=== PATIENT | female | born 1990 | race Caucasian/White ===

== ENCOUNTER 2019-10-01 11:04 | Inpatient (IN) | payer MEDICAID ==
[~2019-10-01] VITALS: Ht 157.5 cm; Wt 55.5 kg
[2019-10-01] MEDS ORDERED: PREN1TAB60 PO (11:58)
[2019-10-01] MEDS ORDERED: MAGNESIUM SULF. PMX 20GM/500ML 500 ML IV SCH (12:00)
[2019-10-01] MEDS ORDERED: LACTATED RINGERS 1,000 ML IV PRN (12:00)
[2019-10-01 12:20] VITALS: BP 100/55
[2019-10-01 12:31] LABS: MICROSCOPIC NOT IND
[2019-10-01 12:42] LABS: MEAN CORPUSCULAR HEMOGLOBIN 30.8 pg (27.0-34.8); MEAN CORPUSCULAR HGB CONC 33.8 g/dL (32.4-35.8); MEAN PLATELET VOLUME 9.6 fL (7.4-10.4); PLATELET COUNT 116 x10^3/uL (130-400); RED BLOOD COUNT 3.71 x10^6/uL (3.82-5.3); RED CELL DISTRIBUTION WIDTH 12.4 % (9.6-15.2)
[2019-10-01 12:51] LABS: ALANINE AMINOTRANSFERASE 18 U/L (12-78); ALBUMIN 2.6 g/dL (3.4-5.0); ANION GAP 9 mmol/L (5-15); CALCIUM 6.9 mg/dL (8.5-10.1); CHLORIDE 105 mmol/L (98-107); CREATININE 0.46 mg/dL (0.55-1.02)
[2019-10-01 12:54] LABS: ALKALINE PHOSPHATASE 98 U/L (45-117); BILIRUBIN,TOTAL 0.2 mg/dL (0.2-1.0); TOTAL PROTEIN 6.5 g/dL (6.4-8.2)
[2019-10-01 12:58] LABS: BASOPHILS # (AUTO) 0.02 x10^3/uL (0-0.1); BASOPHILS % (AUTO) 0 % (0-1); EOSINOPHILS % (AUTO) 0 % (1-7); LYMPHOCYTES # (AUTO) 0.69 x10^3/uL (1-3.4); LYMPHOCYTES % (AUTO) 4 % (22-44); MD SCAN; MONOCYTES # (AUTO) 0.07 x10^3/uL (0.2-0.8); MONOCYTES % (AUTO) 0 % (2-9); NEUTROPHILS # (AUTO) 18.65 x10^3/uL (1.8-6.8); NEUTROPHILS % (AUTO) 96 % (42-75)
[2019-10-01] MEDS ORDERED: SODIUM CITRATE/CITRIC ACID 30 ML UDC ONE (13:21)
[2019-10-01] MEDS ORDERED: FENTANYL PF 100 MCG/2ML ONE (13:21)
[2019-10-01] MEDS ORDERED: METOCLOPRAMIDE 5 MG/ML, 2ML ONE (13:21)
[2019-10-01] MEDS ORDERED: CEFAZOLIN 1,000 MG ONE ×2 (13:22)
[2019-10-01] MEDS ORDERED: OXYTOCIN 10 UNITS/ML, 1ML ONE ×4 (13:26)
[2019-10-01] MEDS ORDERED: KETOROLAC 30 MG/1 ML ONE (13:26)
[2019-10-01] MEDS ORDERED: AZITHROMYCIN 500 MG in SODIUM CHLORIDE 0.9% 250 ML IV ONE (13:30)
[2019-10-01] MEDS ORDERED: LACTATED RINGERS 1,000 ML IVBOLUS ONE (13:30)
[2019-10-01] MEDS ORDERED: SODIUM CITRATE/CITRIC ACID 30 ML UDC PO ONE (13:30)
[2019-10-01] MEDS ORDERED: METOCLOPRAMIDE 5 MG/ML, 2ML IV ONE (13:30)
[2019-10-01] MEDS ORDERED: PHENYLEPHRINE 10 MG/ML ONE (14:08)
[2019-10-01] MEDS ORDERED: EPHEDRINE 50 MG/ML, 1ML ONE (14:08)
[2019-10-01] MEDS ORDERED: NEWBORN KIT ONE (14:17)
[2019-10-01] MEDS ORDERED: ONDANSETRON 2MG/ML, 2ML IVPush PRN (15:00)
[2019-10-01] MEDS ORDERED: EPHEDRINE 50 MG/ML, 1ML IM PRN (15:00)
[2019-10-01] MEDS ORDERED: FENTANYL PF 100 MCG/2ML IV PRN (15:00)
[2019-10-01] MEDS ORDERED: EPHEDRINE 50 MG/ML, 1ML IVPush PRN (15:00)
[2019-10-01] MEDS ORDERED: OXYcodone 5 MG/5 ML ORAL.SOL UDC PO PRN (15:00)
[2019-10-01] MEDS ORDERED: morphine SULFATE 10 MG/ML, 1ML IVPush PRN (15:00)
[2019-10-01] MEDS ORDERED: LABETALOL 5MG/ML, 20ML IV PRN (15:00)
[2019-10-01] MEDS ORDERED: DIPHENHYDRAMINE 50 MG/ML, 1ML IVPush PRN (15:00)
[2019-10-01] MEDS: LACTATED RINGERS 1,000 ML IV SCH ×3 (15:02→23:02)
[2019-10-01] MEDS ORDERED: ONDANSETRON 2MG/ML, 2ML IV PRN (15:30)
[2019-10-01] MEDS ORDERED: SIMETHICONE 80 MG CHEW TAB PO PRN (15:30)
[2019-10-01] MEDS ORDERED: METHYLERGONOVINE 0.2 MG/ML IM PRN (15:30)
[2019-10-01] MEDS ORDERED: ACETAMINOPHEN 325 MG TABLET PO PRN (15:30)
[2019-10-01] MEDS ORDERED: OXYTOCIN 30U/ 0.9% NaCL 500ML 500 ML ONE (16:11)
[2019-10-01] MEDS: OXYTOCIN 30U/ 0.9% NaCL 500ML 500 ML IV SCH (16:13)
[2019-10-01] MEDS ORDERED: OXYcodone 5 MG/5 ML ORAL.SOL UDC ONE (16:41)
[2019-10-01 17:22] VITALS: BP 99/47
[2019-10-01 19:56] VITALS: BP 101/47
[2019-10-01] MEDS: OXYcodone IR 5MG TABLET PO PRN (20:44)
[2019-10-01] MEDS: IBUPROFEN 600 MG TABLET PO PRN (20:44)
[2019-10-01] MEDS: DOCUSATE 100 MG CAPSULE PO PRN (20:44)
[2019-10-01 21:25] LABS: MEAN CORPUSCULAR HEMOGLOBIN 30.4 pg (27.0-34.8); MEAN CORPUSCULAR HGB CONC 33.2 g/dL (32.4-35.8); MEAN CORPUSCULAR VOLUME 91.6 fL (80-100); PLATELET COUNT 102 x10^3/uL (130-400); RED CELL DISTRIBUTION WIDTH 12.9 % (9.6-15.2)
[2019-10-01 23:11] LABS: MD YES
[2019-10-01 23:13] LABS: <PLATELET ESTIMATE> DECREASED; <PLT MORPHOLOGY> NORMAL PLT MORPH; <RBC MORPHOLOGY> NORMAL; MONOS% (MANUAL) 2 % (2-9); SEGS% (MANUAL) 98 % (42-75)
[2019-10-02 00:13] VITALS: BP 105/56
[2019-10-02] MEDS: LACTATED RINGERS 1,000 ML IV SCH ×6 (01:02→23:02)
[2019-10-02] MEDS: OXYTOCIN 30U/ 0.9% NaCL 500ML 500 ML IV SCH ×3 (01:02→21:02)
[2019-10-02] MEDS: OXYcodone IR 5MG TABLET PO PRN ×4 (02:23→19:23)
[2019-10-02] MEDS: IBUPROFEN 600 MG TABLET PO PRN ×3 (02:23→19:23)
[2019-10-02 04:06] VITALS: BP 98/48
[2019-10-02 07:10] VITALS: BP 95/59
[2019-10-02] MEDS: PRENATAL VIT/IRON/FA 1 EACH TABLET PO SCH (09:10)
[2019-10-02] MEDS: DOCUSATE 100 MG CAPSULE PO PRN ×2 (09:10→19:23)
[2019-10-02 12:10] VITALS: BP 93/57
[2019-10-02 16:00] VITALS: BP 101/65
[2019-10-02 19:30] VITALS: BP 96/56
[2019-10-03] MEDS: OXYcodone IR 5MG TABLET PO PRN ×2 (04:27→08:40)
[2019-10-03] MEDS: IBUPROFEN 600 MG TABLET PO PRN ×3 (04:27→17:46)
[2019-10-03] MEDS: OXYTOCIN 30U/ 0.9% NaCL 500ML 500 ML IV SCH ×2 (07:02→18:17)
[2019-10-03] MEDS: LACTATED RINGERS 1,000 ML IV SCH ×5 (07:02→23:02)
[2019-10-03] MEDS: DOCUSATE 100 MG CAPSULE PO PRN (08:40)
[2019-10-03] MEDS: PRENATAL VIT/IRON/FA 1 EACH TABLET PO SCH (08:40)
[2019-10-03] MEDS: OXYcodone/APAP 5/325MG TABLET PO PRN (17:47)
[2019-10-03 21:00] VITALS: BP 94/56
[2019-10-04] MEDS: IBUPROFEN 600 MG TABLET PO PRN ×2 (00:55→11:10)
[2019-10-04] MEDS: OXYTOCIN 30U/ 0.9% NaCL 500ML 500 ML IV SCH (03:02)
[2019-10-04] MEDS: LACTATED RINGERS 1,000 ML IV SCH ×2 (03:02→07:02)
[2019-10-04 07:42] VITALS: BP 113/76
[2019-10-04] MEDS ORDERED: FERROUS GLUCONATE 324 MG TABLET PO SCH (08:00)
[2019-10-04] MEDS ORDERED: DOCU-131 PO (08:36)
[2019-10-04] MEDS ORDERED: IBUP-1222 PO (08:38)
[2019-10-04] MEDS ORDERED: OXYC-302 PO (08:39)
[2019-10-04] MEDS ORDERED: FERR324T18 PO (08:39)
[2019-10-04] MEDS: PRENATAL VIT/IRON/FA 1 EACH TABLET PO SCH (09:00)
[2019-10-04] MEDS: DOCUSATE 100 MG CAPSULE PO PRN (11:10)
[2019-10-04] MEDS: OXYcodone/APAP 5/325MG TABLET PO PRN (15:11)
== END 2019-10-04 15:53 | disposition home or self-care (01) | DRG 540 ==
LOC: LDIP 11:18 → 2NW 17:07
PROVIDERS: ADMIT Obstetrics & Gynecology Maternal & Fetal Medicine; ATTEND Obstetrics & Gynecology Maternal & Fetal Medicine
PROC: 10D00Z1 Extraction of Products of Conception, Low, Open Approach (ICD-10-PCS; principal; 2019-10-01)
PROC: 0T9B70Z Drainage of Bladder with Drainage Device, Via Natural or Artificial Opening (ICD-10-PCS; 2019-10-01)
DX: O60.12X1 Preterm labor second trimester with preterm delivery second trimester, fetus 1 (principal); Z37.2 Twins, both liveborn; O30.042 Twin pregnancy, dichorionic/diamniotic, second trimester; O40.2XX0 Polyhydramnios, second trimester, not applicable or unspecified; O32.2XX2 Maternal care for transverse and oblique lie, fetus 2; O60.12X2 Preterm labor second trimester with preterm delivery second trimester, fetus 2; D64.9 Anemia, unspecified; Z3A.26 26 weeks gestation of pregnancy; O90.81 Anemia of the puerperium
CPT/HCPCS: 36415; 76815; 80053; 81003; 82803; 83735; 85025; 86592; 86850; 86900; 86923; 88307; G0378; J0456; J0690; J1885; J3010; J2370; J2590; J2765; J7050; J7120